=== PATIENT | female | born 1985 | race Caucasian/White ===

== ENCOUNTER 2017-10-09 09:01 | Day surgery (SDC) | payer BC ==
[~2017-10-09 09:01] MED LIST: Buffered Lidocaine 0.9% SYRIN* 5 ML/SYR SYRINGE INTRADERM ONE; DiMENhydriNATE IV* 50 MG/ML VIAL IV PUSH PRN; Famotidine IV* 10 MG/ML 2 ML (20 mg) IV ONE; Morphine INJ* 2 MG/ML 1 ML CARPUJECT IV PRN; PROCHLORPERAZINE INJ 5 MG/ML 2 ML VIAL IV PRN; fentaNYL* 50 MCG/ML 2 ML VIAL (100 MCG VIAL) IV PRN; oxyCODONE/Acetamin 5/325 MG* TAB PO PRN
[2017-10-09] MEDS ORDERED: ceFAZolin 2 GM PREMIX (*) 2 GM/50 ML BAG IVPB ONE (09:13)
[2017-10-09] MEDS ORDERED: Buffered Lidocaine 0.9% SYRIN* 5 ML/SYR SYRINGE ONE (09:13)
[2017-10-09] MEDS ORDERED: Famotidine IV* 10 MG/ML 2 ML (20 mg) ONE (09:13)
[2017-10-09] MEDS ORDERED: Bupivacaine 0.25% SDV* 30 ML ONE (09:29)
[2017-10-09] MEDS ORDERED: fentaNYL* 50 MCG/ML 2 ML VIAL (100 MCG VIAL) ONE (09:45)
[2017-10-09] MEDS ORDERED: KETAMINE HCL* 50 MG/ML 10 ML VIAL ONE (09:46)
[2017-10-09] MEDS ORDERED: Midazolam* 1 MG/ML 10 ML VIAL (10 MG) ONE (09:46)
[2017-10-09] MEDS ORDERED: Surgical Lubricant STERILE* 120 GM TOP.GEL ONE (11:01)
[2017-10-09] MEDS ORDERED: Methylene Blue 0.5 %* 50 MG/10 ML AMP IV ONE (11:17)
[2017-10-09] MEDS ORDERED: Ketorolac INJ* 30 MG/ML 1 ML VIAL ONE (11:35)
[2017-10-09] MEDS ORDERED: Ondansetron INJ* 2 MG/ML VIAL ONE (11:35)
[2017-10-09] MEDS ORDERED: Propofol* 10 MG/ML 20 ML BTL IV PUSH ONE (11:35)
[2017-10-09] MEDS ORDERED: Lidocaine 2% PF * 5 ML VIAL ONE (11:35)
[2017-10-09] MEDS ORDERED: Dexamethasone IV* 4 MG/ML 1 ML (4 MG) ONE (11:35)
--- NOTE | 2017-10-09 11:35 | SURGPN ---
Brief Operative Note - Surgery Procedures: Procedures Pre-OP Diagnoses: recurrent perianal abscesses, r/o fistula in ano Post-op Diagnosis: recurrent perianal abscesses Procedure: exam under anesthesia Surgeon: Liya Asst: none Anethesia: spinal Dr [place] EBL: minimal IVF: minimal Specimen: none Drains: none Complications: None Findings: None
[2017-10-09] MEDS ORDERED: oxyCODONE/Acetamin 5/325 MG* TAB PO PRN (11:44)
[2017-10-09] MEDS ORDERED: Midazolam* 1 MG/ML 2 ML VIAL (2 MG) ONE (11:45)
[2017-10-09 13:03] VITALS: BP 119/70
--- NOTE | 2017-10-09 15:00 | OP ---
CC: Apoorva Crespo NP * DATE OF OPERATION: 10/09/17 - [facility] DATE OF : 83 SURGEON: Krish Nickerson MD SHIELD RUNNER: NICOLE Tao ANESTHESIOLOGIST: Dr. Lang. ANESTHESIA: Spinal anesthesia. PRE-OP DIAGNOSIS: Recurrent perirectal abscesses, rule out [id number]. POST-OP DIAGNOSIS: Recurrent perirectal abscesses. OPERATIVE PROCEDURE: Exam under anesthesia, fistulotomy, possible seton placement. ESTIMATED BLOOD LOSS: Minimal blood loss. FLUIDS: Minimal crystalloid fluid given. SPECIMENS: None. FINDINGS: None. DESCRIPTION OF PROCEDURE: The patient was identified in the preoperative area. I discussed the case with her again. She describes that she thought maybe the area had closed up and we wished to proceed with exam under anesthesia, possible fistulogram and fistulotomy. The patient was taken to the operating room, spinal anesthesia was delivered, and the patient placed on the operating table in the prone position. Buttock cheeks were spread apart and the area was prepped. She had received preoperative antibiotics. A time-out was performed. Review of the perianal area showed the area of the incision from the recurrent abscesses. This showed full epithelialization with some scarring and minimal amount of dimpling. Digital rectal exam was performed and the anus was dilated to 3 fingers. Anal retractors were inserted. There was no evidence of external or internal hemorrhoids. No fissures were appreciated. No sign of openings in the anal mucosa consistent with a fistula. Next, we reviewed the previous incision site. A small skin ronaldo was made at the site and a probe was placed only gently into the previously incised area. There was minimal induration at this area. I then attempted to perform a fistulogram with methylene blue. We injected this through a 22-gauge Angiocath into the opening. We did not identify any blue dye tracking within this area. At this point, I felt there was no evidence of fistula and rather the patient had recurrent perirectal abscesses and that there was nothing further to do now that she is resolved. A 3-0 chromic suture was used to reapproximate the incised area in a simple fashion and a gauze was placed. The patient was woken up and transferred to the PACU in stable condition. [id number]/[facility] #: [id number] [facility]
== END 2017-10-09 12:50 | disposition home or self-care (01) ==
LOC: OR 09:01
PROVIDERS: ATTEND Surgery
DX: K60.3 Anal fistula (principal); F17.210 Nicotine dependence, cigarettes, uncomplicated
CPT/HCPCS: 36415; 81025; 84443; A9270-GY; J0690; J1100; J1885; J2250; J2405; J2704; J3010